=== PATIENT | male | born 1940 | race Caucasian/White ===

== ENCOUNTER 2020-01-10 08:28 | Outpatient (REF) | payer MEDICARE, SELFPAY ==
[2020-01-10 14:50] LABS: PSA,Total (Free>4and<10) 0.23 ng/mL (0.00-4.00)
== END 2020-01-10 08:29 | disposition home or self-care (01) ==
LOC: HO.10HDL 08:28
PROVIDERS: Visit Provider Urology
DX: N40.1 Benign prostatic hyperplasia with lower urinary tract symptoms (principal)
CPT/HCPCS: 84153

== ENCOUNTER → 2020-04-12 13:55 | Outpatient (BNVA) | payer MEDICARE, SELFPAY | PROVIDERS: PCP Internal Medicine; Visit Provider Urology | DX: Z13.89 Encounter for screening for other disorder (principal) | CPT/HCPCS: Q3014 ==